=== PATIENT | male | born 1990 ===

== ENCOUNTER 2018-05-21 08:05 | Emergency (ER) | payer SELFPAY ==
[2018-05-21 08:36] VITALS: RESP 18; TEMP 98.2; O2SAT 98
[2018-05-21] MEDS ORDERED: Lidocaine Hydrochloride 10 ML INJ ONE (08:37)
[2018-05-21] MEDS ORDERED: Bacitracin 500 Units/gm Oint Foilpak UD ONE (08:48)
[2018-05-21] MEDS ORDERED: Tetanus/Diphtheria Toxoids 0.5 ml Syringe IM ONE (08:48)
[2018-05-21] MEDS ORDERED: Lidocaine 1% Inj (20ml) INFIL ONE (08:48)
[2018-05-21] MEDS ORDERED: Bacitracin 500 Units/gm Oint Foilpak UD TOP ONE (08:49)
[2018-05-21] MEDS ORDERED: DTap Vaccine 0.5 ml Vial IM ONE (09:03)
--- NOTE | 2018-05-21 09:06 | C.PDOC ---
History Of Present Illness 28-year-old male presents to the ED for evaluation of left thumb laceration with a knife at home prior to arrival. Patient is actively bleeding in the ED. Denies other injuries and any other associated symptoms Time Seen by Provider: 05/21/18 08:25 Chief Complaint (Nursing): Abnormal Skin Integrity History Per: Patient History/Exam Limitations: no limitations Onset/Duration Of Symptoms: Other (prior to arrival. ) Current Symptoms Are (Timing): Still Present Recent travel outside of the [place]: No Past Medical History Reviewed: Historical Data, Nursing Documentation, Vital Signs Vital Signs: Last Vital Signs Temp 98.2 F 05/21/18 08:18 Pulse 92 H 05/21/18 08:18 Resp 18 05/21/18 08:18 BP 160/83 H 05/21/18 08:18 Pulse Ox 98 05/21/18 08:18 Family History: States: Unknown Family Hx - Social History Hx Alcohol Use: No Hx Substance Use: No - Immunization History Hx Tetanus Toxoid Vaccination: No Hx Influenza Vaccination: No Hx Pneumococcal Vaccination: No Review Of Systems Except As Marked, All Systems Reviewed And Found Negative. Musculoskeletal: Positive for: Other (left thumb laceration. ) Physical Exam - Physical Exam Appears: Well, Non-toxic Skin: Warm, Dry, Other (pad of left thumb: 4 cm laceration. (-) bone exposuure. ligaments intact.) Head: Atraumatic, Normacephalic Eye(s): bilateral: Normal Inspection Oral Mucosa: Moist Neck: Normal ROM, Supple Cardiovascular: Rhythm Regular, No Murmur Respiratory: Normal Breath Sounds, No Rales, No Rhonchi, No Wheezing Extremity: Normal ROM (of the left thumb.), No Deformity Neurological/Psych: Oriented x3, Normal Speech, Normal Cognition, Normal Motor, Normal Sensation, Normal Reflexes ED Course And Treatment O2 Sat by Pulse Oximetry: 98 (RA) Pulse Ox Interpretation: Normal Procedure: Wound Repair - Procedure Procedure: Wound Repair: lef thumb 4 cm laceration. - Consent Obtained Consent obtained: Verbal - Performed by Performed by: Attending Physician - Indications Indication(s):: Laceration - Location Location:: Left Finger:: Thumb Shape:: Linear - Anesthetic Technique Local/Regional Anesthetic:: Lidocaine 1% (digital block.) - Debris Debris:: None - Complexity Complexity:: Simple (one layer) - Wound repair method Sutures:: # (13 5.0 ethilon.) - Patient tolerated procedure Patient Tolerated Procedure:: Well Medical Decision Making Medical Decision Making: Plan: -[facility] Progress/Update: Bacitracin applied. Patient stable for discharge home. Prescribed Keflex and Motrin. Disposition - Disposition Disposition: HOME/ ROUTINE Disposition Time: 09:07 Condition: STABLE Additional Instructions: Suture removal in 7 days Prescriptions: Cephalexin [Keflex] 500 mg PO QID #28 capsule Ibuprofen [Motrin] 600 mg PO TID #15 tab Instructions: Laceration Repair Forms: Gen Discharge Inst Bahamian, General Discharge Instructions, [facility] ([place]), [facility] ([place]), Work Excuse - POA Present On Arrival: None - Clinical Impression Clinical Impression: Finger laceration - Scribe Statement The provider has reviewed the documentation as recorded by the Scribe (Delfina Loza) Provider Attestation: All medical record entries made by the Scribe were at my direction and personally dictated by me. I have reviewed the chart and agree that the record accurately reflects my personal performance of the history, physical exam, medical decision making, and the department course for this patient. I have also personally directed, reviewed, and agree with the discharge instructions and disposition.
[2018-05-21 09:58] VITALS: BP 110/65; PULSE 68
== END 2018-05-21 09:50 | disposition home or self-care (01) ==
LOC: C.ER 08:05
DX: S61.012A Laceration without foreign body of left thumb without damage to nail, initial encounter (principal); W26.0XXA Contact with knife, initial encounter; Y92.009 Unspecified place in unspecified non-institutional (private) residence as the place of occurrence of the external cause; Z23 Encounter for immunization